=== PATIENT | female | born 2000 | race Caucasian/White ===

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

== ENCOUNTER 2018-01-03 01:10 | Outpatient (CLI) | payer MEDICAID ==
[2017-11-13 20:53] VITALS: BMI 35.7
[2018-01-03 01:29] LABS: BASOPHILS 0.2 % (0-2); EOSINOPHILS 1.3 % (0-7); HEMATOCRIT 30.6 % (36.0-48.0); HEMOGLOBIN 9.9 g/dL (12-16); LYMPHOCYTES 19.1 % (15-50); MCH 26.7 pg (26.0-34.0); MCHC 32.4 g/dL (31.0-37.0); MCV 82.5 fL (80.0-100.0); MEAN PLATELET VOLUME 10.5 fL (7.4-10.4); MONOCYTES 7.4 % (2-11); PLATELET COUNT 250 10x3/uL (130-400); RBC 3.71 10x6/uL (4.00-5.40); RDW 14.6 % (11.5-14.5); WBC 11.4 10x3/uL (4.8-10.8)
[2018-01-03 01:34] LABS: APPEARANCE CLOUDY (CLEAR); BILIRUBIN NEGATIVE (NEGATIVE); COLOR YELLOW (YELLOW); GLUCOSE NEGATIVE (NEGATIVE); KETONE NEGATIVE (NEGATIVE); NITRITE NEGATIVE (NEGATIVE); PROTEIN NEGATIVE (NEGATIVE); UROBILINOGEN NORMAL (NORMAL)
[2018-01-03 01:35] LABS: BACTERIA MODERATE /hpf (NONE SEEN); CALCIUM OXALATE CRYSTALS 0-5 /hpf (NONE SEEN); EPITHELIAL CELLS 0-5 /hpf (0-5); MUCUS <1+ /lpf (NONE SEEN); RED CELLS - URINE 0-5 /hpf (0-5)
[2018-01-03 01:57] LABS: ALBUMIN 2.6 g/dL (3.4-5.0); ALKALINE PHOSPHATASE 130 U/L (46-116); ALT (SGPT) 11 U/L (10-68); AMYLASE - SERUM 45 U/L (25-115); BILIRUBIN - TOTAL 0.26 mg/dL (0.2-1.3); CALC OSMOLALITY 278 mosm/kg (275-300); CALCIUM 8.5 mg/dL (8.5-10.1); CHLORIDE - SERUM 106 mmol/L (98-107); CREATININE - SERUM 0.5 mg/dL (0.6-1.3); GLUCOSE 81 mg/dL (74-106); LIPASE 135 U/L (73-393); POTASSIUM - SERUM 3.2 mmol/L (3.5-5.1); PROTEIN - SERUM 6.4 g/dL (6.4-8.2); SODIUM 141 mmol/L (136-145); UREA NITROGEN 10 mg/dL (7-18); eGFR NON AFRICAN AMERICAN > 90 mL/min (90-120)
== END 2018-01-03 02:22 ==
LOC: D.LDO 01:10
PROVIDERS: Obstetrics & Gynecology
DX: O26.893 Other specified pregnancy related conditions, third trimester (principal); Z3A.31 31 weeks gestation of pregnancy

== ENCOUNTER 2018-01-12 10:01 | Outpatient (CLI) | payer MEDICAID ==
[2017-11-13 20:53] VITALS: BMI 35.7
== END 2018-01-12 11:05 ==
LOC: D.LDO 10:01
DX: O36.8130 Decreased fetal movements, third trimester, not applicable or unspecified (principal); Z3A.32 32 weeks gestation of pregnancy

== ENCOUNTER 2018-01-16 19:29 | Outpatient (CLI) | payer MEDICAID ==
[2017-11-13 20:53] VITALS: BMI 35.7
== END 2018-01-16 21:20 | disposition home or self-care (01) ==
LOC: D.LDO 19:29
DX: O36.8130 Decreased fetal movements, third trimester, not applicable or unspecified (principal); Z3A.33 33 weeks gestation of pregnancy

== ENCOUNTER → 2018-02-17 17:34 | Outpatient (CLI) | payer MEDICAID ==
[2017-11-13 20:53] VITALS: BMI 35.7
== END | disposition home or self-care (01) ==
LOC: D.LDO 17:34
DX: O26.893 Other specified pregnancy related conditions, third trimester (principal); Z3A.37 37 weeks gestation of pregnancy; R10.30 Lower abdominal pain, unspecified

== ENCOUNTER → 2018-02-20 12:12 | Outpatient (CLI) | payer MEDICAID ==
[2017-11-13 20:53] VITALS: BMI 35.7
== END | disposition home or self-care (01) ==
LOC: D.LDO 12:12
DX: O26.893 Other specified pregnancy related conditions, third trimester (principal); Z3A.38 38 weeks gestation of pregnancy

== ENCOUNTER → 2018-02-27 07:40 | Outpatient (CLI) | payer MEDICAID ==
[2017-11-13 20:53] VITALS: BMI 35.7
== END | disposition home or self-care (01) ==
LOC: D.LDO 07:40
DX: O26.893 Other specified pregnancy related conditions, third trimester (principal); Z3A.39 39 weeks gestation of pregnancy

== ENCOUNTER 2018-03-01 06:39 | Inpatient (IN) | payer MEDICAID ==
[~2018-03-01] VITALS: Ht 157.5 cm; Wt 94.8 kg
[2018-03-01 08:24] VITALS: BP 119/65; BMI 38.3
[2018-03-01 09:03] LABS: HEMATOCRIT 31.6 % (36.0-48.0); MCH 24.6 pg (26.0-34.0); MCHC 31.6 g/dL (31.0-37.0); MCV 77.8 fL (80.0-100.0); MEAN PLATELET VOLUME 10.7 fL (7.4-10.4); RBC 4.06 10x6/uL (4.00-5.40); RDW 15.9 % (11.5-14.5); WBC 11.9 10x3/uL (4.8-10.8)
[2018-03-01 09:10] LABS: APPEARANCE CLEAR (CLEAR); BILIRUBIN NEGATIVE (NEGATIVE); COLOR YELLOW (YELLOW); GLUCOSE NEGATIVE (NEGATIVE); KETONE NEGATIVE (NEGATIVE); NITRITE NEGATIVE (NEGATIVE); PROTEIN NEGATIVE (NEGATIVE); SPECIFIC GRAVITY 1.015 (1.005-1.020); UROBILINOGEN NORMAL (NORMAL)
[2018-03-01 10:12] VITALS: Ht 157.5 cm; Wt 94.8 kg
[2018-03-01 18:56] VITALS: BP 110/59
[2018-03-01 22:15] VITALS: BP 116/50
[2018-03-02 06:51] LABS: BASOPHILS 0.4 % (0-2); EOSINOPHILS 1.9 % (0-7); HEMATOCRIT 31.8 % (36.0-48.0); HEMOGLOBIN 9.9 g/dL (12-16); LYMPHOCYTES 19.8 % (15-50); MCH 24.2 pg (26.0-34.0); MCHC 31.1 g/dL (31.0-37.0); MCV 77.8 fL (80.0-100.0); MEAN PLATELET VOLUME 10.5 fL (7.4-10.4); MONOCYTES 8.8 % (2-11); NEUTROPHILS 68.1 % (40-80); PLATELET COUNT 215 10x3/uL (130-400); RBC 4.09 10x6/uL (4.00-5.40); RDW 15.9 % (11.5-14.5); WBC 11.5 10x3/uL (4.8-10.8)
[2018-03-02 07:29] LABS: RAPID PLASMA REAGIN Non Reactive (Non Reactive)
[2018-03-02 10:00] VITALS: BP 112/59
[2018-03-02 19:45] VITALS: BP 119/79
[2018-03-03 03:20] VITALS: BP 117/61
[2018-03-03 07:18] VITALS: BP 98/47
[2018-03-03] MEDS ORDERED: HYDROCODON-ACE1 EAC7 PO (09:32)
[2018-03-03] MEDS ORDERED: IBUPROFEN600 MG PO (09:33)
== END 2018-03-03 12:30 | disposition home or self-care (01) | DRG 807 ==
LOC: D.LD 06:39
PROVIDERS: Obstetrics & Gynecology
PROC: 10E0XZZ Delivery of Products of Conception, External Approach (ICD-10-PCS; principal; 2018-03-01)
PROC: 10907ZC Drainage of Amniotic Fluid, Therapeutic from Products of Conception, Via Natural or Artificial Opening (ICD-10-PCS; 2018-03-01)
DX: O80 Encounter for full-term uncomplicated delivery (principal); Z37.0 Single live birth; Z3A.39 39 weeks gestation of pregnancy

== ENCOUNTER 2018-03-30 17:48 | Emergency (ER) | payer MEDICAID ==
[~2018-03-30] VITALS: Ht 157.5 cm; Wt 88.2 kg
[~2018-03-30 17:48] MED LIST changes: +HYDROCODON-ACE1 EAC7 PO; +IBUPROFEN600 MG PO
[2018-03-30 18:06] VITALS: Ht 157.5 cm; Wt 88.2 kg
[2018-03-30 18:57] LABS: BASOPHILS 0.4 % (0-2); EOSINOPHILS 4.3 % (0-7); HEMATOCRIT 35.8 % (36.0-48.0); HEMOGLOBIN 11.3 g/dL (12-16); IMMATURE GRANULOCYTES 0.3 % (0-5); LYMPHOCYTES 31.1 % (15-50); MCH 24.8 pg (26.0-34.0); MCHC 31.6 g/dL (31.0-37.0); MCV 78.7 fL (80.0-100.0); MEAN PLATELET VOLUME 10.5 fL (7.4-10.4); MONOCYTES 6.2 % (2-11); NEUTROPHILS 57.7 % (40-80); PLATELET COUNT 242 10x3/uL (130-400); RBC 4.55 10x6/uL (4.00-5.40); RDW 16.8 % (11.5-14.5)
[2018-03-30 19:06] LABS: HCG URINE NEGATIVE (NEGATIVE)
[2018-03-30 19:07] LABS: APPEARANCE CLEAR (CLEAR); BILIRUBIN NEGATIVE (NEGATIVE); COLOR YELLOW (YELLOW); EPITHELIAL CELLS 0-5 /hpf (0-5); GLUCOSE NEGATIVE (NEGATIVE); KETONE NEGATIVE (NEGATIVE); NITRITE NEGATIVE (NEGATIVE); PROTEIN NEGATIVE (NEGATIVE); RED CELLS - URINE OCC /hpf (0-5); UROBILINOGEN NORMAL (NORMAL); WHITE CELLS - URINE 0-5 /hpf (0-5)
[2018-03-30 19:12] LABS: ALBUMIN 3.4 g/dL (3.4-5.0); ALKALINE PHOSPHATASE 148 U/L (46-116); ALT (SGPT) 68 U/L (10-68); AMYLASE - SERUM 32 U/L (25-115); BILIRUBIN - TOTAL 0.16 mg/dL (0.2-1.3); CALC OSMOLALITY 282 mosm/kg (275-300); CALCIUM 8.2 mg/dL (8.5-10.1); CARBON DIOXIDE 25.4 mmol/L (21.0-32.0); CHLORIDE - SERUM 106 mmol/L (98-107); GLUCOSE 72 mg/dL (74-106); LIPASE 138 U/L (73-393); POTASSIUM - SERUM 4.1 mmol/L (3.5-5.1); PROTEIN - SERUM 6.9 g/dL (6.4-8.2); SODIUM 142 mmol/L (136-145); UREA NITROGEN 16 mg/dL (7-18); eGFR NON AFRICAN AMERICAN 76 mL/min (90-120)
[2018-03-30] MEDS ORDERED: MIRALAX17 GM PO (20:57)
[2018-03-30 21:53] VITALS: BP 133/69
== END 2018-03-30 21:54 | disposition home or self-care (01) ==
LOC: D.ER 17:48
PROVIDERS: Emergency Medicine
DX: R10.11 Right upper quadrant pain (principal); K59.00 Constipation, unspecified; R16.0 Hepatomegaly, not elsewhere classified

== ENCOUNTER 2018-04-12 22:36 | Emergency (ER) | payer MEDICAID ==
[~2018-04-12] VITALS: Ht 157.5 cm; Wt 88.2 kg
[~2018-04-12 22:36] MED LIST changes: +MIRALAX17 GM PO
[2018-04-12 22:51] VITALS: Ht 157.5 cm; Wt 88.2 kg
[2018-04-12 23:08] LABS: BASOPHILS 0.2 % (0-2); EOSINOPHILS 0.6 % (0-7); HEMATOCRIT 37.5 % (36.0-48.0); HEMOGLOBIN 12.1 g/dL (12-16); IMMATURE GRANULOCYTES 0.3 % (0-5); LYMPHOCYTES 12.1 % (15-50); MCH 25.4 pg (26.0-34.0); MCHC 32.3 g/dL (31.0-37.0); MCV 78.8 fL (80.0-100.0); MEAN PLATELET VOLUME 10.2 fL (7.4-10.4); MONOCYTES 5.3 % (2-11); NEUTROPHILS 81.5 % (40-80); PLATELET COUNT 255 10x3/uL (130-400); RBC 4.76 10x6/uL (4.00-5.40); RDW 17.2 % (11.5-14.5); WBC 11.9 10x3/uL (4.8-10.8)
[2018-04-12 23:14] LABS: APPEARANCE HAZY (CLEAR); BILIRUBIN NEGATIVE (NEGATIVE); COLOR YELLOW (YELLOW); GLUCOSE NEGATIVE (NEGATIVE); HCG URINE NEGATIVE (NEGATIVE); KETONE NEGATIVE (NEGATIVE); NITRITE NEGATIVE (NEGATIVE); PROTEIN NEGATIVE (NEGATIVE); UROBILINOGEN NORMAL (NORMAL)
[2018-04-12 23:19] LABS: BACTERIA MODERATE /hpf (NONE SEEN); EPITHELIAL CELLS 0-5 /hpf (0-5); MUCUS >1+ /lpf (NONE SEEN); RED CELLS - URINE 0-5 /hpf (0-5)
[2018-04-12 23:20] LABS: ALBUMIN 3.7 g/dL (3.4-5.0); ALKALINE PHOSPHATASE 150 U/L (46-116); ALT (SGPT) 108 U/L (10-68); BILIRUBIN - TOTAL 0.34 mg/dL (0.2-1.3); CALC OSMOLALITY 282 mosm/kg (275-300); CALCIUM 8.6 mg/dL (8.5-10.1); CARBON DIOXIDE 22.9 mmol/L (21.0-32.0); CHLORIDE - SERUM 106 mmol/L (98-107); CREATININE - SERUM 0.8 mg/dL (0.6-1.3); GLUCOSE 124 mg/dL (74-106); POTASSIUM - SERUM 3.6 mmol/L (3.5-5.1); PROTEIN - SERUM 7.4 g/dL (6.4-8.2); SODIUM 141 mmol/L (136-145); UREA NITROGEN 14 mg/dL (7-18); eGFR NON AFRICAN AMERICAN > 90 mL/min (90-120)
[2018-04-12 23:23] LABS: AMYLASE - SERUM 41 U/L (25-115); LIPASE 146 U/L (73-393)
[2018-04-12 23:24] LABS: TROPONIN-I < 0.017 ng/mL (0.000-0.060)
[2018-04-12] MEDS ORDERED: BENTYL 20 MG TA20 MG PO (23:42)
[2018-04-12] MEDS ORDERED: ZOFRAN ODT4 MG/UDTAB PO (23:45)
[2018-04-13 01:52] VITALS: BP 135/68
== END 2018-04-13 01:53 | disposition home or self-care (01) ==
LOC: D.ER 22:36
PROVIDERS: Family Medicine
DX: R11.2 Nausea with vomiting, unspecified (principal); R94.5 Abnormal results of liver function studies; K82.9 Disease of gallbladder, unspecified; N39.0 Urinary tract infection, site not specified

== ENCOUNTER 2018-05-26 09:00 | Day surgery (SDC) | payer MEDICAID ==
[2018-05-25 09:19] LABS: HEMATOCRIT 39.9 % (36.0-48.0); HEMOGLOBIN 13.3 g/dL (12-16); MCH 27.4 pg (26.0-34.0); MCHC 33.3 g/dL (31.0-37.0); MCV 82.3 fL (80.0-100.0); MEAN PLATELET VOLUME 11.1 fL (7.4-10.4); RBC 4.85 10x6/uL (4.00-5.40); RDW 15.2 % (11.5-14.5); WBC 6.4 10x3/uL (4.8-10.8)
[~2018-05-26] VITALS: Ht 157.5 cm; Wt 89.4 kg
[~2018-05-26 09:00] MED LIST changes: +ADIPEX-P37.5 M1 PO; +BENTYL 20 MG TA20 MG PO; +FERROUS SULFAT140 MG PO; +ZANAFLEX2 M1 PO; +ZOFRAN ODT4 MG/UDTAB PO; +ZOLOFT50 MG PO
--- NOTE | 2018-05-26 10:48 | NUR ---
1040 LAST DOSE OF PHENTERMINE 48 HOURS AGO. PT STATES SHE HAS BEEN ON THIS MED FOR APPROXIMATELY 3 WEEKS. PT STATES SHE WAS NOT TOLD TO HOLD PHENTERMINE PRIOR TO YESTERDAY. DR ALLISON NOTIFIED OF THIS INFORMATION. DR. ALLISON STATED TO PROCEED IN GETTING PATIENT READY FOR SURGERY. PT AWARE OF THIS COMMUNICATION WITH ANESTHESIOLOGIST.
[2018-05-26 11:00] VITALS: BP 103/60; Ht 157.5 cm; Wt 89.4 kg
[2018-05-26 11:11] LABS: HCG URINE NEGATIVE (NEGATIVE)
--- NOTE | 2018-05-26 15:00 | NUR ---
REC'D FROM RR.DRESSING CDI TO ABD. FRIEND/FAMILY AT BEDSIDE. DROWSY. AROUSES TO VERBAL STIMULI.
--- NOTE | 2018-05-26 15:30 | NUR ---
EYES CLOSED. FAMILY AT BEDSIDE. ENCOURAGING TO EAT AND DRINK IN ORDER TO MEET DC CRITERIA.
--- NOTE | 2018-05-26 16:50 | NUR ---
UP TO BATHROOM. UNABLE TO VOID. ICE WATER TAKEN TO PT.
--- NOTE | 2018-05-26 17:22 | NUR ---
LAB HERE TO DRAW LFT.
--- NOTE | 2018-05-26 17:46 | NUR ---
UP TO BATHROOM. GOING TO TRY AND VOID.
--- NOTE | 2018-05-26 17:55 | NUR ---
VOIDED. IV DC'D WITH CATHETER INTACT.
--- NOTE | 2018-05-26 18:00 | NUR ---
WRITTEN AND VERBAL DC INST. GIVEN TO PT HARPER WITH RX. VERBALIZED UNDERSTANDING.
[2018-05-26 18:02] LABS: ALBUMIN 3.9 g/dL (3.4-5.0); BILIRUBIN - DIRECT 0.1 mg/dL (0.00-0.30); BILIRUBIN - INDIRECT 0.13 mg/dL (0.00-1.00); BILIRUBIN - TOTAL 0.23 mg/dL (0.2-1.3); PROTEIN - SERUM 7.3 g/dL (6.4-8.2)
--- NOTE | 2018-05-26 18:15 | NUR ---
DC'D HOME WITH FRIEND VIA PRIVATE VEHICLE. TAKEN TO VEHICLE VIA WC. STABLE AT TIME OF DC.
--- NOTE | 2018-05-27 14:41 | OP ---
PATIENT NAME: RAY CONTRERAS MEDICAL RECORD: [id number] :98 LOCATION:D.OPS ADMISSION DATE: SURGEON: SIMONE HOWELL MD DATE OF OPERATION: 05/26/2018 PREOPERATIVE DIAGNOSIS: Symptomatic gallstones. POSTOPERATIVE DIAGNOSES: Symptomatic gallstones with hepatomegaly and a nonobstructing common bile duct stone. SURGEON: Simone Howell MD PLASTIC SHEETS SUPERVISOR: None. BLOOD LOSS: Minimal. ANESTHESIA: General. COMPLICATIONS: None. The risks, possible complications and alternatives to the procedure were explained to the patient. She elects to proceed. The discussion specifically included, but was not limited to, bleeding requiring emergency reoperation, infection, intestinal injury. OPERATIVE COURSE: The patient was conveyed to the operating room electively on 05/26/2018. General anesthesia was induced by the anesthesia staff. The abdomen was sterilely prepped and draped. A Veress needle was inserted through the skin tung in the left upper quadrant. Once a sufficient pneumoperitoneum had been achieved, a 5-mm trocar was inserted in the right upper quadrant. Under direct internal vision, utilizing a television camera, a 12-mm trocar was inserted at the umbilicus. Another 5-mm trocar was inserted in the left upper quadrant. Another 5-mm trocar was inserted far laterally in the right upper quadrant. During insertion of the Veress needle and all trocars, there appeared to have been no injury to the bowels, any intraperitoneal or retroperitoneal structures. The indication for liver biopsy was hepatomegaly. I advanced a 14-gauge core needle biopsy device through the right upper quadrant into the liver and the cores of the liver were obtained. The biopsy sites were made hemostatic with electrocautery. I then passed a cholangiogram trocar. I punctured the fundus of the gallbladder. I aspirated bile. I then injected dye. I noted multiple filling defects within the common bile duct. I was able to lift pressure clear on all of these defects except one, this was a nonobstructing stone. The images were sent to the radiologist for interpretation and the radiologist called back and we discussed the cholangiographic images. I then aspirated bile and removed the cholangiogram trocar. The gallbladder was retracted cephalad. The infundibulum was retracted laterally. Blunt dissection was begun in the triangle of Calot. One cystic artery and one cystic duct were identified. These were clipped multiply and divided between clips. The gallbladder was then excised from its bed in the liver. It was placed within a bag retrieval device and was withdrawn through the umbilical fascia defect. OPERATIVE REPORT [id number] BENRAY The 12-mm trocar was replaced and the abdomen reinsufflated. I irrigated and aspirated the right upper quadrant. There was no bleeding even at low pressure of 8. The umbilical fascial defect was closed with multiple 0 Vicryl sutures utilizing the Jose-Maite suture closure device. All the trocars were removed and the abdomen desufflated. The umbilical skin was closed with interrupted 4-0 Vicryl Rapide sutures. The other skin incisions were closed with interrupted 3-0 Vicryls. Benzoin and Steri-Strips were applied. The patient was then extubated and conveyed to post-anesthesia care unit where she was in stable condition. As this was a nonobstructing stone, I think she can be dismissed home and can undergo an outpatient ERCP in the future. I will contact Dr. Persaud regarding this. TRANSINT:[id number] Voice Confirmation ID: [id number] DOCUMENT ID: [id number] SIMONE HOWELL MD at 1441 CC: LULA CASTRO MD and ADOLFO PERSAUD DO [id number] DICTATION DATE: 05/26/18 1505 ACCOUNTS RECEIVABLE ANALYST: 05/27/18 0139 [facility] 05/26/18 [facility] [address] [place] [address]
== END 2018-05-26 18:15 | disposition home or self-care (01) ==
LOC: D.OPS 09:00 → D.PAN 11:00 → D.OPS 11:00
PROVIDERS: Anesthesiology; ATTEND Surgery
DX: K80.64 Calculus of gallbladder and bile duct with chronic cholecystitis without obstruction (principal); K76.0 Fatty (change of) liver, not elsewhere classified; Z01.812 Encounter for preprocedural laboratory examination

== ENCOUNTER 2018-09-04 12:25 | Day surgery (SDC) | payer MEDICAID ==
[~2018-09-04] VITALS: Ht 157.5 cm; Wt 81.6 kg
[2018-09-04 12:12] LABS: HEMATOCRIT 39.6 % (36.0-48.0); HEMOGLOBIN 13.4 g/dL (12-16); MCH 28.9 pg (26.0-34.0); MCHC 33.8 g/dL (31.0-37.0); MCV 85.3 fL (80.0-100.0); MEAN PLATELET VOLUME 10.4 fL (7.4-10.4); RBC 4.64 10x6/uL (4.00-5.40); RDW 14.3 % (11.5-14.5); WBC 5.7 10x3/uL (4.8-10.8)
[2018-09-04 13:26] VITALS: BP 117/33; Ht 157.5 cm; Wt 81.6 kg
[2018-09-04 13:37] LABS: HCG URINE NEGATIVE (NEGATIVE)
--- NOTE | 2018-09-04 14:51 | NUR ---
20CC CONTRAST USED 0.4 MINUTES FOR FLURO TIME
--- NOTE | 2018-09-04 17:05 | NUR ---
1358 DR DE LA FUENTE AT BEDSIDE TALKING WITH PT AND SIGNIFICANT OTHER. IV REMOVED,VOIDED AND DRESSED
[2018-09-05 14:30] LABS: HCG SERUM NEGATIVE (NEGATIVE)
== END 2018-09-04 17:00 | disposition home or self-care (01) ==
LOC: D.OPS 12:25
PROVIDERS: Anesthesiology; ATTEND Internal Medicine Gastroenterology
DX: K80.50 Calculus of bile duct without cholangitis or cholecystitis without obstruction (principal); Z01.812 Encounter for preprocedural laboratory examination